=== PATIENT | female | born 1970 | race Caucasian/White ===

== ENCOUNTER 2017-04-20 12:58 | Emergency (ER) | payer BC ==
[~2017-04-20] VITALS: Ht 170.2 cm; Wt 85.0 kg
[~2017-04-20 12:58] MED LIST: AMBIEN10 MG OR; BENADRY2 EX; FLEXERIL10 MG PO; FLONASE NASAL50 MCG; MEDDOSEPAK PO; NAPROSYN500 MG PO; NEURONTIN100 MG PO; PEPCID20 MG PO; VALTREX1 GM PO; VICODIN ES1 TAB PO; XANAX0.25 MG OR; XANAX0.25 MG PO; ZANTAC 150 MAX150 MG PO
[2017-04-20] MEDS ORDERED: ULTRAM50 M1 PO (15:02)
[2017-04-20 15:09] VITALS: BP 167/99
== END 2017-04-20 15:13 | disposition home or self-care (01) | DRG 605 ==
LOC: ED 12:58
DX: S00.93XA Contusion of unspecified part of head, initial encounter (principal); M32.9 Systemic lupus erythematosus, unspecified; S13.9XXA Sprain of joints and ligaments of unspecified parts of neck, initial encounter; S60.212A Contusion of left wrist, initial encounter; M25.552 Pain in left hip; M79.7 Fibromyalgia; W18.2XXA Fall in (into) shower or empty bathtub, initial encounter; Y93.E1 Activity, personal bathing and showering; Y92.002 Bathroom of unspecified non-institutional (private) residence as the place of occurrence of the external cause

== ENCOUNTER 2017-07-10 13:18 | Day surgery (SDC) | payer BC ==
[~2017-07-10] VITALS: Ht 167.6 cm; Wt 83.5 kg
[~2017-07-10 13:18] MED LIST changes: +NORCO1 TA1 PO; +ULTRAM50 M1 PO; +VIBERZI100 MG PO
[2017-07-10] MEDS ORDERED: AMLODIPINE5 MG PO (13:48)
[2017-07-10 15:13] VITALS: BP 154/86
== END 2017-07-10 15:25 | disposition home or self-care (01) | DRG 392 ==
LOC: ENDO 13:18 → ORM 15:30 → ENDO 15:30
PROVIDERS: ATTEND Internal Medicine Gastroenterology
PROC: 0DB78ZX Excision of Stomach, Pylorus, Via Natural or Artificial Opening Endoscopic, Diagnostic (ICD-10-PCS; principal; 2017-07-10)
PROC: 0DB98ZX Excision of Duodenum, Via Natural or Artificial Opening Endoscopic, Diagnostic (ICD-10-PCS; 2017-07-10)
DX: R10.13 Epigastric pain (principal); K21.9 Gastro-esophageal reflux disease without esophagitis; R10.33 Periumbilical pain; R19.7 Diarrhea, unspecified; R14.0 Abdominal distension (gaseous); R11.2 Nausea with vomiting, unspecified; K29.50 Unspecified chronic gastritis without bleeding; Q40.8 Other specified congenital malformations of upper alimentary tract; K44.9 Diaphragmatic hernia without obstruction or gangrene; K22.9 Disease of esophagus, unspecified

== ENCOUNTER 2017-12-17 14:43 | Emergency (ER) | payer BC ==
[~2017-12-17] VITALS: Ht 167.6 cm; Wt 85.0 kg
[~2017-12-17 14:43] MED LIST changes: +AMLODIPINE5 MG PO
[2017-12-17 16:05] LABS: HEMATOCRIT 35.8 % (37.0-47.0); HEMOGLOBIN 12.1 g/dl (12.0-16.0); IMMATURE GRANULOCYTES 0.2 % (0.0-1.0); MEAN CELL VOLUME 99.4 fL CALC (80.0-100.0); MEAN CORPUSCULAR HGB 33.6 pG CALC (26.0-32.0); MEAN CORPUSCULAR HGB CONC 33.8 g/L CALC (32.0-36.0); NEUT# 4.11 thou/uL (2.00-7.15); RED BLOOD COUNT 3.6 mill/uL (4.20-5.60); RED CELL DISTRI WIDTH 13.1 % (11.5-15.5)
[2017-12-17 16:19] LABS: ALBUMIN 4.8 g/dL (3.2-5.0); ALKALINE PHOSPHATASE 85 u/l (38-126); ANION GAP 17 (6-22 (CALC)); BILIRUBIN, TOTAL 0.5 mg/dL (0.0-1.4); BUN 14 mg/dL (7-17); BUN/CREATININE RATIO 18 (12-20 (CALC)); CALCIUM 10.5 mg/dL (8.4-10.2); CARBON DIOXIDE 26 mmol/l (22-30); CHLORIDE 103 mmol/l (95-108); CREATININE 0.8 mg/dL (0.5-1.0); GFR > 60 ML/MIN (>=60 (CALC)); GFR FOR AFR.AMER. > 60 ML/MIN (>=60 (CALC)); GLUCOSE 107 mg/dL (65-105); POTASSIUM 4.8 mmol/l (3.5-5.1); SGOT/AST 30 u/l (14-36); SGPT/ALT 36 u/l (9-52); SODIUM 142 mmol/l (137-146); TOTAL PROTEIN 7.6 g/dL (6.3-8.2)
[2017-12-17 16:28] LABS: MYOGLOBIN 31 ng/mL (0 - 62)
[2017-12-17 16:45] VITALS: BP 141/79
[2017-12-17] MEDS ORDERED: PREDNISONE50 MG PO (16:46)
== END 2017-12-17 17:44 | disposition home or self-care (01) | DRG 313 ==
LOC: ED 14:43
PROVIDERS: Emergency Medicine
DX: R07.9 Chest pain, unspecified (principal); R09.1 Pleurisy; I10 Essential (primary) hypertension; R06.02 Shortness of breath; R11.2 Nausea with vomiting, unspecified; Z91.19 Patient's noncompliance with other medical treatment and regimen

== ENCOUNTER 2019-12-24 | Emergency (ER) | payer OTHER, BC ==
[~2019-12-24] MED LIST changes: +LISINOP/HCTZ1 TA1 PO; +PREDNISONE50 MG PO
[2019-12-24] MEDS ORDERED: FLEXERIL PO (13:56)
[2019-12-24] MEDS ORDERED: HYDROCO/APAP1 TA9 PO (13:56)
== END 2019-12-24 14:06 | disposition home or self-care (01) | DRG 605 ==
DX: S20.211A Contusion of right front wall of thorax, initial encounter (principal); S30.1XXA Contusion of abdominal wall, initial encounter; S80.02XA Contusion of left knee, initial encounter; S80.01XA Contusion of right knee, initial encounter; S70.02XA Contusion of left hip, initial encounter; S70.12XA Contusion of left thigh, initial encounter; I10 Essential (primary) hypertension; V53.6XXA Passenger in pick-up truck or van injured in collision with car, pick-up truck or van in traffic accident, initial encounter